=== PATIENT | male | born 1960 | race Caucasian/White ===

== ENCOUNTER 2020-10-12 14:44 | Emergency (ER) | payer MEDICAID, OTHER ==
[~2020-10-12] VITALS: Ht 175.3 cm; Wt 102.1 kg
[2020-10-12] MEDS ORDERED: FUROSEMIDE 40 MG/4 ML VIAL IV ONE (15:15)
[2020-10-12 16:50] LABS: Basophils # (auto) 0.1 10 ^3/uL (0-0.2); Basophils % (auto) 1.1 % (0.0-2.0); Eosinophils # (auto) 0.2 10 ^3/uL (0-0.8); Eosinophils % (auto) 2.2 % (0.0-7.0); Hematocrit 40.2 % (41.0-53.0); Hemoglobin 13.9 g/dL (13.5-17.5); Lymphocytes # (auto) 1.5 10 ^3/uL (0.4-5.4); Lymphocytes % (auto) 16.8 % (10.0-50.0); Mean Corpuscular Hemoglobin 30.5 pg (28.0-32.0); Mean Corpuscular Hgb Conc. 34.7 g/dL (32.0-36.0); Mean Corpuscular Volume 87.9 fL (80.0-100.0); Monocytes # (auto) 0.6 10 ^3/uL (0-1.3); Monocytes % (auto) 6.7 % (0.0-12.0); Neutrophils # (auto) 6.5 10 ^3/uL (1.6-8.6); Neutrophils % (auto) 73.2 % (37.0-80.0); Nucleated Red Blood Cells % 0.2 %; Red Blood Cells 4.57 10^6/uL (4.5-5.90); Red Cell Distribution Width 15.3 % (11.8-14.3); White Blood Cell 8.9 10^3/uL (4.4-10.8)
[2020-10-12 17:09] LABS: Albumin 3.5 g/dL (3.4-5.0); BUN/Creatinine Ratio 17.2; Calcium 8.3 mg/dL (8.5-10.1); Potassium 4.2 mmol/L (3.5-5.1)
[2020-10-12 17:14] LABS: Bilirubin, Total 1.2 mg/dL (0.2-1.0); Total Protein 6.9 g/dL (6.4-8.2)
[2020-10-12 17:43] LABS: Urine WBC None Seen /hpf (0 - 3)
[2020-10-12 17:59] LABS: Urine Bacteria NONE SEEN /hpf (None Seen); Urine Blood Negative /uL (Negative); Urine Mucus FEW (None Seen); Urine Specific Gravity 1.018 (1.001-1.035)
[2020-10-12 20:00] VITALS: BP 148/97
== END 2020-10-12 21:41 ==
LOC: ER 14:44 → EDBD 14:44 → ER 21:41
DX: I24.9 Acute ischemic heart disease, unspecified (principal); I50.9 Heart failure, unspecified; F17.210 Nicotine dependence, cigarettes, uncomplicated; Z20.822 Contact with and (suspected) exposure to COVID-19
CPT/HCPCS: 36415; 71045; 80053; 81001; 83880; 84484; 85025; 85379; 87426; 93005; 96374; 99285; J1940; 99291

== ENCOUNTER 2021-02-15 14:14 | Inpatient (IN) | payer MEDICAID ==
[~2021-02-15] VITALS: Ht 175.3 cm; Wt 110.9 kg
[2021-02-15] MEDS ORDERED: FUROSEMIDE 40 MG/4 ML VIAL IV ONE (14:30)
[2021-02-15 15:03] LABS: Basophils # (auto) 0.1 10 ^3/uL (0-0.2); Basophils % (auto) 1.4 % (0.0-2.0); Eosinophils # (auto) 0.1 10 ^3/uL (0-0.8); Eosinophils % (auto) 1.3 % (0.0-7.0); Hematocrit 43.2 % (41.0-53.0); Hemoglobin 14.1 g/dL (13.5-17.5); Lymphocytes # (auto) 1.3 10 ^3/uL (0.4-5.4); Lymphocytes % (auto) 16.4 % (10.0-50.0); Mean Corpuscular Hemoglobin 28.5 pg (28.0-32.0); Mean Corpuscular Hgb Conc. 32.6 g/dL (32.0-36.0); Mean Corpuscular Volume 87.4 fL (80.0-100.0); Monocytes # (auto) 0.5 10 ^3/uL (0-1.3); Monocytes % (auto) 6.8 % (0.0-12.0); Neutrophils # (auto) 5.9 10 ^3/uL (1.6-8.6); Neutrophils % (auto) 74.1 % (37.0-80.0); Red Blood Cells 4.95 10^6/uL (4.5-5.90); Red Cell Distribution Width 16.2 % (11.8-14.3)
[2021-02-15 15:22] LABS: Albumin 3.3 g/dL (3.4-5.0); Anion Gap 8 (5-15); Blood Urea Nitrogen 20 mg/dL (7-18); Calcium 8.6 mg/dL (8.5-10.1); Carbon Dioxide 28 mmol/L (21-32); Chloride 108 mmol/L (98-107); Glucose 108 mg/dL (74-106); Potassium 3.9 mmol/L (3.5-5.1); Sodium 144 mmol/L (136-145)
[2021-02-15 15:24] LABS: BUN/Creatinine Ratio 10.3; GFR African American 45 mL/min; GFR Non-African American 37 mL/min
[2021-02-15 15:36] LABS: Alanine Aminotransferase 41 U/L (16-61); Alkaline Phosphatase 117 U/L (45-117); Aspartate Aminotransferase 32 U/L (15-37); Bilirubin, Total 1.6 mg/dL (0.2-1.0); Total Protein 6.9 g/dL (6.4-8.2)
[2021-02-15] MEDS ORDERED: ISOSORBIDE MONONITRATE ER 60 MG TAB PO ONE (16:45)
[2021-02-15] MEDS ORDERED: NITROGLYCERIN 0.4 MG SL TAB SL PRN ×2 (16:45→19:15)
[2021-02-15] MEDS ORDERED: MORPHINE SULFATE INJECTION 2 MG/ML SYRG IV PRN ×3 (16:45→19:15)
[2021-02-15] MEDS ORDERED: FUROSEMIDE 100 MG/10ML VIAL IV ONE (16:45)
[2021-02-15] MEDS ORDERED: RIV20T PO (16:46)
[2021-02-15] MEDS ORDERED: FURO40TA4 PO (16:46)
[2021-02-15] MEDS ORDERED: POTA-180 PO (16:46)
[2021-02-15] MEDS ORDERED: hydrALAZINE HCL 20 MG/ML VL IV PRN (19:15)
[2021-02-15] MEDS ORDERED: DOXYCYCLINE 100MG/250ML 250 ML IV ONE (19:15)
[2021-02-15] MEDS ORDERED: METOCLOPRAMIDE HCL 5MG/ml INJ 2ml VIAL IV PRN (19:15)
[2021-02-15] MEDS ORDERED: ALUM & MAG HYDROX-SIMETH LIQ(MAALOX) 30 ML PO PRN (19:15)
[2021-02-15] MEDS ORDERED: LACTATED RINGER'S 1,000 ML IV SCH (19:15)
[2021-02-15] MEDS ORDERED: LORazepam 0.5 MG TAB PO PRN (19:15)
[2021-02-15] MEDS ORDERED: HYDROcodone-ACET 5/325MG TAB PO PRN (19:15)
[2021-02-15] MEDS ORDERED: METOPROLOL SUCCINATE XL 50 MG TAB PO ONE (19:15)
[2021-02-15] MEDS ORDERED: FAMOTIDINE (10MG/ML) 2ML VL IV ONE (19:15)
[2021-02-15] MEDS ORDERED: ACETAMINOPHEN 325 MG TAB PO PRN (19:15)
[2021-02-15] MEDS: ATORVASTATIN 20 MG TAB PO SCH (20:35)
[2021-02-15 20:37] LABS: Magnesium 2.1 mg/dL (1.6-2.6); Phosphorus 4.2 mg/dL (2.5-4.90)
[2021-02-15 20:38] LABS: INR 1.25 (0.9-1.15); Partial Thromboplastin Time 29.2 sec (23.6-33.0)
[2021-02-15] MEDS: hydrALAZINE HCL 25 MG TAB PO SCH (21:36)
[2021-02-16] MEDS: LORazepam 2MG/ML-1ML VIAL IV PRN ×2 (01:03→19:46)
[2021-02-16] MEDS: hydrALAZINE HCL 25 MG TAB PO SCH ×3 (06:00→22:00)
[2021-02-16] MEDS: FUROSEMIDE 40 MG/4 ML VIAL IV SCH ×2 (06:04→19:01)
[2021-02-16] MEDS: FAMOTIDINE (10MG/ML) 2ML VL IV SCH ×2 (09:27→22:52)
[2021-02-16] MEDS: POTASSIUM CHL 20 Meq TABLET PO SCH (09:27)
[2021-02-16] MEDS: METOPROLOL SUCCINATE XL 50 MG TAB PO SCH (09:28)
[2021-02-16] MEDS: DOXYCYCLINE 100MG/250ML 250 ML IV SCH ×2 (09:59→22:53)
[2021-02-16] MEDS: ISOSORBIDE MONONITRATE ER 60 MG TAB PO SCH (10:15)
[2021-02-16 12:50] LABS: Calcium 8.5 mg/dL (8.5-10.1); Potassium 4.6 mmol/L (3.5-5.1)
[2021-02-16 13:04] LABS: BUN/Creatinine Ratio 9.9; Bilirubin, Total 2.2 mg/dL (0.2-1.0); Total Protein 6.3 g/dL (6.4-8.2)
[2021-02-16] MEDS ORDERED: THIAMINE 100mg/ml INJ (200mg/2ml VIAL) IV ONE (14:00)
[2021-02-16] MEDS ORDERED: chlordiazePOXIDE HCL 25 MG CAP PO ONE (14:00)
[2021-02-16] MEDS ORDERED: chlordiazePOXIDE HCL 25 MG CAP PO PRN (14:00)
[2021-02-16 14:33] LABS: Amylase 13 U/L (25-115); Lipase 51 U/L (73-393)
[2021-02-16 18:35] LABS: Amphetamine Screen, Urine POSITIVE (NEGATIVE); Barbiturate Scree,Urine NEGATIVE (NEGATIVE); Benzodiazephine Screen, Urine NEGATIVE (NEGATIVE); Cannabinoid Screen, Urine NEGATIVE (NEGATIVE); Cocaine Screen, Urine NEGATIVE (NEGATIVE); Opiate Scree,Urine NEGATIVE (NEGATIVE); Phencyclidine Screen, Urine NEGATIVE (NEGATIVE)
[2021-02-16 18:50] LABS: Urine Bacteria NONE SEEN /hpf (None Seen); Urine Blood Negative /uL (Negative); Urine Hyaline Cast MANY /lpf (0 - 2); Urine Mucus FEW (None Seen); Urine Specific Gravity 1.017 (1.001-1.035); Urine WBC 1 /hpf (0 - 3)
[2021-02-16] MEDS: chlordiazePOXIDE HCL 25 MG CAP PO SCH (19:01)
[2021-02-16] MEDS: RIVAROXABAN 20 MG TAB PO SCH (19:01)
[2021-02-16 22:00] VITALS: BP 84/51
[2021-02-16] MEDS: ATORVASTATIN 20 MG TAB PO SCH (22:53)
[2021-02-17] MEDS: chlordiazePOXIDE HCL 25 MG CAP PO SCH ×2 (00:39→05:59)
[2021-02-17] MEDS: LORazepam 2MG/ML-1ML VIAL IV PRN ×2 (01:52→08:54)
[2021-02-17 05:00] VITALS: BP 83/58
[2021-02-17] MEDS: FUROSEMIDE 40 MG/4 ML VIAL IV SCH ×2 (05:51→18:03)
[2021-02-17] MEDS: hydrALAZINE HCL 25 MG TAB PO SCH ×3 (05:52→22:00)
[2021-02-17] MEDS: THIAMINE 100mg/ml INJ (200mg/2ml VIAL) IV SCH (08:52)
[2021-02-17] MEDS: FAMOTIDINE (10MG/ML) 2ML VL IV SCH ×2 (08:52→21:55)
[2021-02-17] MEDS: POTASSIUM CHL 20 Meq TABLET PO SCH ×2 (08:53→10:00)
[2021-02-17] MEDS: DOXYCYCLINE 100MG/250ML 250 ML IV SCH ×2 (08:53→21:56)
[2021-02-17] MEDS: ISOSORBIDE MONONITRATE ER 60 MG TAB PO SCH ×2 (08:53→10:00)
[2021-02-17] MEDS: METOPROLOL SUCCINATE XL 50 MG TAB PO SCH ×2 (08:54→10:00)
[2021-02-17 09:00] VITALS: BP 107/56
[2021-02-17 13:00] VITALS: BP 97/76
[2021-02-17] MEDS: SILDENAFIL CITRATE 20 MG TAB PO SCH ×2 (14:00→20:00)
[2021-02-17 16:17] LABS: Calcium 8.6 mg/dL (8.5-10.1); Potassium 3.9 mmol/L (3.5-5.1)
[2021-02-17 16:21] LABS: BUN/Creatinine Ratio 10.2; Bilirubin, Total 2.4 mg/dL (0.2-1.0); Total Protein 6.1 g/dL (6.4-8.2)
[2021-02-17 17:00] VITALS: BP 115/78
[2021-02-17] MEDS: RIVAROXABAN 20 MG TAB PO SCH (18:03)
[2021-02-17] MEDS: ATORVASTATIN 20 MG TAB PO SCH (21:56)
[2021-02-17 22:00] VITALS: BP 102/73
[2021-02-18 05:00] VITALS: BP 106/66
[2021-02-18 05:36] LABS: Basophils # (auto) 0.1 10 ^3/uL (0-0.2); Basophils % (auto) 1.3 % (0.0-2.0); Eosinophils # (auto) 0.2 10 ^3/uL (0-0.8); Eosinophils % (auto) 1.7 % (0.0-7.0); Hematocrit 40.3 % (41.0-53.0); Hemoglobin 13.5 g/dL (13.5-17.5); Lymphocytes # (auto) 2.6 10 ^3/uL (0.4-5.4); Lymphocytes % (auto) 24.3 % (10.0-50.0); Mean Corpuscular Hemoglobin 30.2 pg (28.0-32.0); Mean Corpuscular Hgb Conc. 33.5 g/dL (32.0-36.0); Monocytes # (auto) 1.1 10 ^3/uL (0-1.3); Monocytes % (auto) 10.7 % (0.0-12.0); Neutrophils # (auto) 6.6 10 ^3/uL (1.6-8.6); Nucleated Red Blood Cells % 0.1 %; Red Blood Cells 4.48 10^6/uL (4.5-5.90); Red Cell Distribution Width 16.3 % (11.8-14.3); White Blood Cell 10.6 10^3/uL (4.4-10.8)
[2021-02-18 05:50] LABS: Potassium 3.5 mmol/L (3.5-5.1)
[2021-02-18 05:54] LABS: BUN/Creatinine Ratio 12.1; Calcium 8.9 mg/dL (8.5-10.1)
[2021-02-18] MEDS: hydrALAZINE HCL 25 MG TAB PO SCH ×2 (06:00→14:00)
[2021-02-18] MEDS: FUROSEMIDE 40 MG/4 ML VIAL IV SCH (06:16)
[2021-02-18 06:28] LABS: Bilirubin, Total 2.1 mg/dL (0.2-1.0); Total Protein 6.1 g/dL (6.4-8.2)
[2021-02-18 08:32] VITALS: BP 116/73
[2021-02-18] MEDS: POTASSIUM CHL 20 Meq TABLET PO SCH (10:33)
[2021-02-18] MEDS: SILDENAFIL CITRATE 20 MG TAB PO SCH ×2 (10:33→14:00)
[2021-02-18] MEDS: METOPROLOL SUCCINATE XL 50 MG TAB PO SCH (10:34)
[2021-02-18] MEDS: ISOSORBIDE MONONITRATE ER 60 MG TAB PO SCH (10:34)
[2021-02-18] MEDS: FAMOTIDINE (10MG/ML) 2ML VL IV SCH (10:35)
[2021-02-18] MEDS: DOXYCYCLINE 100MG/250ML 250 ML IV SCH (10:35)
[2021-02-18] MEDS: LORazepam 2MG/ML-1ML VIAL IV PRN (10:35)
[2021-02-18] MEDS: THIAMINE 100mg/ml INJ (200mg/2ml VIAL) IV SCH (10:35)
[2021-02-18 12:45] VITALS: BP 105/62
[2021-02-18] MEDS ORDERED: ALBUTEROL SULF 2.5 MG/0.5ML(0.5%) NEB SOLN NEB PRN (14:15)
[2021-02-18] MEDS ORDERED: SODIUM CHLORIDE 0.9% 1,000 ML IV ONE (15:30)
[2021-02-18 17:00] VITALS: BP 105/73
[2021-02-18] MEDS: RIVAROXABAN 20 MG TAB PO SCH (18:25)
[2021-02-18 22:00] VITALS: BP 110/72
[2021-02-19 05:00] VITALS: BP 133/81
[2021-02-19 08:40] LABS: Albumin 2.9 g/dL (3.4-5.0); Calcium 8.7 mg/dL (8.5-10.1); Potassium 3.9 mmol/L (3.5-5.1)
[2021-02-19 08:43] LABS: BUN/Creatinine Ratio 14.2; Bilirubin, Total 1.8 mg/dL (0.2-1.0)
[2021-02-19] MEDS: THIAMINE HCL 100 MG TAB PO SCH (08:49)
[2021-02-19 09:00] VITALS: BP 129/76
[2021-02-19] MEDS ORDERED: FUROSEMIDE 40 MG TAB PO SCH (10:00)
[2021-02-19 13:00] VITALS: BP 125/82
[2021-02-19] MEDS ORDERED: FUROSEMIDE 40 MG/4 ML VIAL IV ONE (16:00)
[2021-02-19 17:00] VITALS: BP 130/87
[2021-02-19] MEDS: RIVAROXABAN 20 MG TAB PO SCH (17:34)
[2021-02-19 22:06] VITALS: BP 133/80
[2021-02-19] MEDS: CARVEDILOL 3.125 MG TAB PO SCH (22:16)
[2021-02-20 09:00] VITALS: BP 131/72
[2021-02-20] MEDS: THIAMINE HCL 100 MG TAB PO SCH (09:47)
[2021-02-20] MEDS: CARVEDILOL 3.125 MG TAB PO SCH (09:48)
[2021-02-20 09:57] LABS: Albumin 3.3 g/dL (3.4-5.0); Calcium 9.2 mg/dL (8.5-10.1); Potassium 3.7 mmol/L (3.5-5.1)
[2021-02-20 10:00] LABS: BUN/Creatinine Ratio 12.7; Total Protein 6.7 g/dL (6.4-8.2)
[2021-02-20 12:35] LABS: Protein, Urine 17.9 mg/dL (0.0-11.9)
[2021-02-20 12:55] VITALS: BP 131/72
[2021-02-20 13:00] VITALS: BP 139/84
[2021-02-20] MEDS ORDERED: FUROSEMIDE 40 MG/4 ML VIAL IV ONE (16:00)
[2021-02-20 17:00] VITALS: BP 146/99
[2021-02-20] MEDS: RIVAROXABAN 20 MG TAB PO SCH (17:41)
[2021-02-20 21:55] VITALS: BP 111/74
[2021-02-21] MEDS: CARVEDILOL 3.125 MG TAB PO SCH ×2 (00:03→10:15)
[2021-02-21 05:14] VITALS: BP 111/71
[2021-02-21 06:40] LABS: Potassium 3.8 mmol/L (3.5-5.1)
[2021-02-21 06:45] LABS: BUN/Creatinine Ratio 14.2; Calcium 8.7 mg/dL (8.5-10.1)
[2021-02-21] MEDS ORDERED: FURO20TA3 PO (08:42)
[2021-02-21] MEDS ORDERED: CAR3125T PO (08:42)
[2021-02-21] MEDS ORDERED: POTA1TAB61 PO (08:42)
[2021-02-21 09:00] VITALS: BP 114/57
[2021-02-21] MEDS: THIAMINE HCL 100 MG TAB PO SCH (10:15)
[2021-02-21 11:00] VITALS: BP 114/57
[2021-02-21 13:00] VITALS: BP 119/55
[2021-02-21 13:20] LABS: Hepatitis A Total Antibody Negative
[2021-02-21 13:36] LABS: Hepatitis B Surface Antigen Negative (Negative)
[2021-02-21 13:45] LABS: Hepatitis B Surface Antibody Negative
[2021-02-21 13:59] LABS: Hepatitis C Antibody Negative (Negative)
[2021-02-21 14:05] LABS: Hepatitis B Core Total AB Negative
[2021-02-21] MEDS: RIVAROXABAN 20 MG TAB PO SCH (17:39)
== END 2021-02-21 18:48 | disposition home or self-care (01) | DRG 280 ==
LOC: ER 14:14 → TELE 19:13 → TELE-WESTW 02-16 18:34
PROVIDERS: ADMIT Hospitalist; ATTEND Internal Medicine
DX: K70.31 Alcoholic cirrhosis of liver with ascites (principal); N17.0 Acute kidney failure with tubular necrosis; J96.01 Acute respiratory failure with hypoxia; G93.41 Metabolic encephalopathy; I50.43 Acute on chronic combined systolic (congestive) and diastolic (congestive) heart failure; K42.0 Umbilical hernia with obstruction, without gangrene; I13.0 Hypertensive heart and chronic kidney disease with heart failure and stage 1 through stage 4 chronic kidney disease, or unspecified chronic kidney disease; I95.89 Other hypotension; K76.6 Portal hypertension; D68.4 Acquired coagulation factor deficiency; Z20.822 Contact with and (suspected) exposure to COVID-19; E66.01 Morbid (severe) obesity due to excess calories; E78.5 Hyperlipidemia, unspecified; E88.09 Other disorders of plasma-protein metabolism, not elsewhere classified; F15.10 Other stimulant abuse, uncomplicated; F17.210 Nicotine dependence, cigarettes, uncomplicated; I16.9 Hypertensive crisis, unspecified; I27.20 Pulmonary hypertension, unspecified; I42.6 Alcoholic cardiomyopathy; I50.82 Biventricular heart failure; I71.4 Abdominal aortic aneurysm, without rupture; N18.32 Chronic kidney disease, stage 3b; Z86.711 Personal history of pulmonary embolism; Z79.899 Other long term (current) drug therapy; Z79.01 Long term (current) use of anticoagulants; Z68.35 Body mass index [BMI] 35.0-35.9, adult
CPT/HCPCS: 36415; 36600; 71045; 74176; 76705; 76775; 80048; 80053; 80307; 81001; 82140; 82150; 82550; 82570; 82805; 83036; 83690; 83735; 83880; 84100; 84156; 84300; 84443; 84484; 85025; 85610; 85730; 86704; 86706; 86708; 86803; 87040; 87340; 87426; 93005; 93306; 96365; 96366; 96375; 99291; G0378; J3490